=== PATIENT | male | born 1945 | race Caucasian/White ===

== ENCOUNTER 2020-02-23 06:04 | Day surgery (SDC) | payer MEDICARE ==
[2020-02-19 14:38] VITALS: BMI 28.8
--- NOTE | 2020-02-22 22:45 | P.GSHP ---
History of Present Illness H&P Date: 02/23/20 CHIEF COMPLAINT: Back mass HISTORY OF PRESENT ILLNESS: The patient is a 74 year-old male with history of lipomas of the upper back. He presents today for surgical excision. PAST MEDICAL HISTORY: Please see list. PAST SURGICAL HISTORY: Please see list. MEDICATIONS: Please see list. ALLERGIES: Please see list. SOCIAL HISTORY: No illicit drug use FAMILY HISTORY: No reports of Crohn disease or ulcerative colitis. REVIEW OF ORGAN SYSTEMS: CONSTITUTIONAL: No reports of fevers or chills. GI: Denies any blood in stools or constipation. PHYSICAL EXAM: VITAL SIGNS: Stable Musculoskeletal: Approximately 5 cm lipomas, superficial, along the right upper back. SKIN: Lesion identified along bilateral thighs. GENERAL: Well developed and in no acute distress. Pleasant. HEENT: No sclera icterus. Extraocular movements grossly intact. Moist buccal mucosa. Head is atraumatic, normocephalic. Hears conversational speech. No nasal drainage. NECK: Supple without lymphadenopathy. No JV distention. CHEST: Non-labored respirations and equal bilateral excursions. CARDIOVASCULAR: Regular rate and rhythm. Palpable 2+ radial pulses. ABDOMEN: Soft. Non-tender. Nondistended. NEUROLOGIC: No focal or lateralizing signs. PSYCH: Appropriate affect. Alert and oriented to person, place and time. ASSESSMENT: 1. Lipomas along the upper back. PLAN: 1. Will proceed of excision of subcutaneous tumor along the upper back. 2. DVT prophylaxis. 3. Antibiotic prophylaxis. 4. Time of recovery, at least one week. Past Medical History Past Medical History: Cancer, Hyperlipidemia, Hypertension Additional Past Medical History / Comment(s): SKIN CANCER ON NOSE History of Any Multi-Drug Resistant Organisms: None Reported Past Surgical History: Coronary Bypass/CABG, Hernia Repair, Orthopedic Surgery Additional Past Surgical History / Comment(s): BILAT CATARACTS REMOVED WITH LENS IMPLANTS. RT KNEE AND HAND SX. CANCER REMOVED FROM NOSE. SX FOR UNDESCENDED TESTICLE Past Anesthesia/Blood Transfusion Reactions: No Reported Reaction Smoking Status: Never smoker - Past Family History Mother Family Medical History: Cancer Medications and Allergies Home Medications Medication Instructions Recorded Confirmed Type Aspirin [Adult Low Dose Aspirin EC] 81 mg PO DAILY 02/19/20 02/19/20 History Lisinopril [Prinivil] 10 mg PO DAILY 02/19/20 02/19/20 History Metoprolol Tartrate [Lopressor] 25 mg PO BID 02/19/20 02/19/20 History Simvastatin [Zocor] 40 mg PO HS 02/19/20 02/19/20 History Allergies Allergy/AdvReac Type Severity Reaction Status Date / Time No Known Allergies Allergy Verified 02/19/20 14:32
[~2020-02-23 06:04] MED LIST: Pre Op ABX Message 1 EACH MISC MISCELLANE ONE
[2020-02-23] MEDS ORDERED: HYDROmorphone 0.5 MG/0.5 ML SYRINGE IVP PRN (06:13)
[2020-02-23] MEDS ORDERED: LACTATED RINGERS 1,000 ML IV SCH (06:13)
[2020-02-23] MEDS ORDERED: LIDOCAINE 1% (10MG/ML) FOR IV START INTRADERMA PRN (06:13)
[2020-02-23] MEDS ORDERED: ONDANSETRON 4 MG/2 ML VIAL IVP ONE (06:13)
[2020-02-23] MEDS ORDERED: LACTATED RINGERS 1,000 ML IV ONE (06:58)
[2020-02-23] MEDS ORDERED: fentaNYL (PF) 50 MCG/ML 2 ML AMP ONE (07:27)
[2020-02-23] MEDS ORDERED: PROPOFOL 10 MG/ML 20 ML VIAL IV ONE (07:27)
[2020-02-23] MEDS ORDERED: SUCCINYLCHOLINE CHLORIDE 100 MG/5 ML SYR IV ONE (07:27)
[2020-02-23] MEDS ORDERED: LIDOCAINE 1% INJ 10MG/ML (20 ML MDV) ONE (07:27)
[2020-02-23] MEDS ORDERED: MIDAZOLAM 2 MG/2 ML VIAL ONE (07:27)
[2020-02-23] MEDS ORDERED: PHENYLEPHRINE-0.9% NACL SYG 1 MG/10 ML SYRINGE ONE (07:27)
[2020-02-23] MEDS ORDERED: LIDOCAINE 1%-EPI 1:100,000 20 ML VIAL SQ ONE (08:00)
[2020-02-23 08:35] VITALS: RESP 16; TEMP 96.8
--- NOTE | 2020-02-23 08:37 | P.OP ---
Date of Procedure: 02/23/20 Description of Procedure: SURGEON: YESICA PONCE MD CHRISTMAS TREE GROWER: None. PREOPERATIVE DIAGNOSES: 1. Lower midline back tumor 2. Hypertensive heart disease 3. Hyperlipidemia POSTOPERATIVE DIAGNOSES: 1. Deep subcutaneous lower midline back tumor 2. Hypertensive heart disease 3. Hyperlipidemia PROCEDURES PERFORMED: 1. Excision of deep subcutaneous lower midline back mass, 6 x 2.5 cm 2. Complex four layer closure lower midline back incision, 7-cm Anesthesia: GETA, local Estimated Blood Loss (ml): 10 Pathology: other (back mass) Condition: stable Disposition: same day COMPLICATIONS: None. Operative Findings: 1. Excision of deep subcutaneous lower midline back tumor 6 x 2.5 cm INDICATIONS: The patient is a 74-year-old male who presents with symptomatic lower midline back tumor. Benefits and risks of surgical intervention were described including bleeding, infection, seroma, pain and recurrence. Informed consent was obtained. DESCRIPTION OR PROCEDURE: In the preoperative area, the area of concern was marked with indelible marker. Patient was brought into the operating room. After general induction, he was positioned in left lateral decubitus position. The back was prepped and draped in a standard sterile fashion with ChloraPrep. Timeout protocol was confirmed with the surgical team regarding the patient's name, procedure to be performed including preoperative medications. DVT prophylaxis was confirmed. A field block was placed of the left lower back. An transverse incision using #10 blade was made along the marking into the dermis and subcutaneous tissue. Electro-Bovie cautery was used to enter deep into subcutaneous tissue where a mass was removed in total of 6 x 2.5 cm. 0 Vicryl for the deep subcutaneous tissue followed by 3-0 Vicryl for the subcutaneous tissue was placed in interrupted fashion. 4-0 Monocryl in a running subcuticular fashion was placed along the dermis. The skin was cleansed and Exofin tape with liquid was applied for a four layer closure. The incision was covered with Optifoam dressing. At the end of the procedure, needle, sponge, and instrument count was verified correct by surgical assistant. The patient tolerated the procedure well. Plan - Discharge Summary Discharge Rx Participant: No New Discharge Prescriptions: New Ibuprofen [Motrin] 600 mg PO Q8HR PRN #30 tab PRN Reason: Pain Acetaminophen Tab [Tylenol Tab] 1,000 mg PO Q6HR PRN #30 tablet Continue Simvastatin [Zocor] 40 mg PO HS Metoprolol Tartrate [Lopressor] 25 mg PO BID Lisinopril [Prinivil] 10 mg PO DAILY Aspirin [Adult Low Dose Aspirin EC] 81 mg PO DAILY Discharge Medication List Aspirin [Adult Low Dose Aspirin EC] 81 mg PO DAILY 02/19/20 [History] Lisinopril [Prinivil] 10 mg PO DAILY 02/19/20 [History] Metoprolol Tartrate [Lopressor] 25 mg PO BID 02/19/20 [History] Simvastatin [Zocor] 40 mg PO HS 02/19/20 [History] Acetaminophen Tab [Tylenol Tab] 1,000 mg PO Q6HR PRN #30 tablet 02/23/20 [Rx] Ibuprofen [Motrin] 600 mg PO Q8HR PRN #30 tab 02/23/20 [Rx] Follow up Appointment(s)/Referral(s): Yesica Ponce MD [STAFF PHYSICIAN] - 03/02/20 Patient Instructions/Handouts: Dermal Cyst Excision (DC), Excision of Skin Lesion (DC) Activity/Diet/Wound Care/Special Instructions: NO WIDE MOTIONS OF THE SHOULDERS/ARMS FOR 1 WEEK. NO BENDING AT THE HIPS WHILE SITTING NO EXTREME STRETCHING OF THE BACK See instructions on dressing. DO NOT REMOVE DRESSING. No lifting over 10 pounds in 2 weeks, Mar 08August shower. No bath tub soaks for two weeks, Mar 08 Diet as tolerated. Notify surgeon for temperature over 101.5, increased redness along incision, increased pain along surgical site. Discharge Disposition: HOME SELF-CARE
[2020-02-23 09:29] VITALS: BP 113/72; PULSE 71
== END 2020-02-23 09:39 | disposition home or self-care (01) ==
LOC: OR 06:04
PROVIDERS: ATTEND Surgery Plastic and Reconstructive Surgery
DX: L72.0 Epidermal cyst (principal); I11.9 Hypertensive heart disease without heart failure; E78.5 Hyperlipidemia, unspecified; Z79.82 Long term (current) use of aspirin; Z98.890 Other specified postprocedural states; Z95.1 Presence of aortocoronary bypass graft; Z80.9 Family history of malignant neoplasm, unspecified; Z79.899 Other long term (current) drug therapy
CPT/HCPCS: 88304; 11406; 12032; J2250; J0690; J2405; J2001; J3010; J2370; J0330; J2704

== ENCOUNTER → 2021-03-01 | Outpatient (CLI) | payer MEDICARE | END | disposition home or self-care (01) | LOC: LABPAT 10:30 | PROVIDERS: ATTEND Orthopaedic Surgery | DX: Z01.812 Encounter for preprocedural laboratory examination (principal); M16.12 Unilateral primary osteoarthritis, left hip; Z22.322 Carrier or suspected carrier of Methicillin resistant Staphylococcus aureus | CPT/HCPCS: 86850; 86900; 86901; 87070 ==

== ENCOUNTER 2021-03-07 06:11 | Day surgery (SDC) | payer MEDICARE ==
--- NOTE | 2021-03-06 17:51 | HP ---
HISTORY AND PHYSICAL DATE OF SURGERY: 03/07/2021 Ben Harper is a 75-year-old patient seen with symptomatic left hip osteoarthritis. We discussed options for treatment. The patient elected to proceed with direct anterior left total hip arthroplasty. Consent regarding the procedure was obtained. Cardiac clearance was provided by Dr. Cuevas. PAST MEDICAL HISTORY: Cardiovascular disease, hyperlipidemia, hypertension. PAST SURGICAL HISTORY: Coronary artery bypass surgery, herniorrhaphy, cataract surgery. DAILY MEDICATIONS: Aspirin, lisinopril, metoprolol, simvastatin. ALLERGIES: NONE REPORTED. SOCIAL HISTORY: He denies tobacco use. PHYSICAL EVALUATION OF THE LEFT HIP: He has very limited range of motion with severe pain, diffuse tenderness. Positive hip impingement sign. Straight-leg raise negative. Distal neurovascular exam is intact. Radiographs of the left hip reveal severe osteoarthritic changes. IMPRESSION: 1. Left hip osteoarthritis. 2. Hypertension. 3. Hyperlipidemia. 4. Cardiovascular disease. PLAN: Direct anterior left total hip arthroplasty. MMODL / IJN: [id number] /
[~2021-03-07 06:11] MED LIST changes: +ACETAMINOPHEN TAB 500 MG TAB PO PRN; +MELOXICAM 7.5 MG TAB PO PRN; -Pre Op ABX Message 1 EACH MISC MISCELLANE ONE; +ROPIVACAINE/EPI/CLONIDINE/KET 50 ML SYRINGE MISCELLANE PRN; +TRANEXAMIC ACID 1,000 MG in SODIUM CHLORIDE 0.9% 100 ML IVPB PRN
[2021-03-07] MEDS ORDERED: MIDAZOLAM 2 MG/2 ML VIAL IV PRN (06:27)
[2021-03-07] MEDS ORDERED: ONDANSETRON 4 MG/2 ML VIAL IVP ONE (06:27)
[2021-03-07] MEDS ORDERED: DEXAMETHASONE SOD PHOSPHATE 4 MG/ML 1 ML VIAL IV ONE (06:27)
[2021-03-07] MEDS ORDERED: LIDOCAINE 1% (10MG/ML) FOR IV START INTRADERMA ONE (06:55)
[2021-03-07] MEDS: LACTATED RINGERS 1,000 ML IV SCH ×2 (06:55→19:29)
[2021-03-07] MEDS ORDERED: HYDROmorphone 0.5 MG/0.5 ML SYRINGE IVP PRN ×3 (07:00→09:22)
[2021-03-07] MEDS ORDERED: TRANEXAMIC ACID 1,000 MG/10 ML VIAL ONE (07:22)
[2021-03-07] MEDS ORDERED: fentaNYL (PF) 50 MCG/ML 2 ML AMP ONE (07:22)
[2021-03-07] MEDS ORDERED: MIDAZOLAM 2 MG/2 ML VIAL ONE (07:22)
[2021-03-07] MEDS ORDERED: KETAMINE 10 MG/ML 20 ML VIAL ONE (07:22)
[2021-03-07] MEDS ORDERED: diphenhydrAMINE 50 MG/ML 1 ML VIAL ONE (07:22)
[2021-03-07] MEDS ORDERED: PROPOFOL 10 MG/ML 20 ML VIAL IV ONE (07:22)
[2021-03-07] MEDS ORDERED: SODIUM CHLORIDE 0.9% 100 ML BAG ONE (07:22)
[2021-03-07] MEDS ORDERED: ceFAZolin 1,000 MG in SODIUM CHLORIDE 0.9% 1,000 ML IRRIGATION ONE (08:02)
[2021-03-07] MEDS ORDERED: LACTATED RINGERS 1,000 ML IV ONE (08:23)
--- NOTE | 2021-03-07 09:19 | XR ---
EXAMINATION TYPE: XR Hip Limited LT DATE OF EXAM: 03/07/2021 COMPARISON: NONE HISTORY: Postop TECHNIQUE: One view submitted. FINDINGS: There is postsurgical change in near anatomic alignment. There is soft tissue edema and emphysema. IMPRESSION: 1. Postoperative change. Appears in near-anatomic alignment.
[2021-03-07] MEDS ORDERED: NALOXONE 0.4 MG/ML 1 ML VIAL IV PRN (09:22)
[2021-03-07] MEDS ORDERED: HYDROcodone/APAP 5-325MG 1 EACH TAB PO PRN ×2 (09:22)
[2021-03-07] MEDS ORDERED: ONDANSETRON 4 MG/2 ML VIAL IVP PRN (09:22)
[2021-03-07] MEDS ORDERED: HYDROmorphone 0.2 MG/1 ML SYRINGE IVP PRN (09:22)
--- NOTE | 2021-03-07 09:22 | FL ---
EXAMINATION TYPE: FL guidance operating room DATE OF EXAM: 03/07/2021 HISTORY: Fluoroscopy time 10 seconds of fluoroscopy provided. IMPRESSION: 1. Fluoroscopy time.
--- NOTE | 2021-03-07 09:22 | P.OP ---
Date of Procedure: 03/07/21 Preoperative Diagnosis: Left hip osteoarthritis Postoperative Diagnosis: Left hip osteoarthritis Procedure(s) Performed: Direct anterior left total hip arthroplasty Implants: 1. Depuy Corail KA size 18 standard collar press-fit femoral stem 2. Depuy pinnacle 64 mm press-fit acetabular shell 3. Depuy pinnacle +4 neutral polyethylene acetabular liner 36 mm ID 64 mm OD 4. Biolox delta ceramic femoral head +5 36 mm Anesthesia: local, spinal Surgeon: Denzel Villasenor Sharebroker #1: Sujit Christianson Estimated Blood Loss (ml): 105 Pathology: other (Femoral head) Condition: stable Disposition: PACU Indications for Procedure: 75-year-old patient seen with symptomatic left hip osteoarthritis. After treatment options were discussed, he elected to proceed with total hip arthroplasty. Operative Findings: see description of procedure Description of Procedure: The patient was taken to the operative suite. Patient underwent a spinal anesthetic by the department of anesthesia. Patient was then transferred to the [place] table. Patient was given preoperative IV antibiotics and TXA. Both lower extremities were placed in standard leg spars. The hip was then prepped and draped in the normal sterile orthopedic fashion. A standard anterior incision was made beginning 3 cm lateral and 1 cm distal to the ASIS extending 10 cm. Dissection was then carried down through the subcutaneous soft tissues down to the fascia overlying the tensor fascia dc. An incision was now made through the fascia. Careful dissection was taken down exposing the tensor fascia dc muscle. A Cobra retractor was now placed along the medial femoral neck and a second one along the lateral femoral neck. The venous circumflex vessels were now identified, cauterized and clipped. We identified the anterior hip capsule. An incision was made through the hip capsule along the lateral border. I performed a partial anterior capsulectomy. Retractors were now placed around the femoral neck itself. A femoral neck cut was now made with a sagittal saw. It was completed with an osteotome at the lateral neck area. The femoral head was now removed without difficulty. The extremity was now rotated to 60 of external rotation. It was locked in position. Residual labrum was now debrided out. Serial reaming was performed of the acetabulum while Jamie PLEITEZ assisted holding an anterior retractor for exposure. Once we reached the appropriate size and a trial was position and fit nicely. The appropriate size was now chosen opened and made available. It was introduced into the acetabulum without difficulty. The C-arm/fluoroscopy was now brought into the operative field. We made sure we had a true AP pelvic view. We now under direct C- arm/fluoroscopy introduced into the acetabular component with appropriate version and inclination. I held the cup in appropriate position well Jamie PLEITEZ used a mallet to seat the acetabular component. I noted the component now to be well seated and stable. Acetabular cup introduce her was removed. The C-arm was pulled back. An appropriate liner was introduced and clicked into position. It was felt to be stable. At this point retractors were removed. The extremity was now placed into 140 external rotation with no traction. The leg was now dropped to the ground and adducted. Appropriate retractors were now positioned along the proximal femur. We also placed our femoral look into position. Additional capsular releasing was performed to gain access to the proximal femur. We now used a box osteotome. A canal finder was now utilized. Serial broaching was now performed with the assistance of Jamie PLEITEZ tapping the broaches down with a mallet while held the broach in appropriate rotation and position. This was done until we reached the appropriate size with good overall rotational stability. Appropriate calcar planing was performed. A trial head/neck was placed into position. The hip was now reduced. The C- arm/fluoroscopy was brought back into the operative field. I obtained an AP pelvis demonstrating reasonable leg length alignment. The trial components appear to be adequately size and position. The C-arm/fluoroscopy was pulled back. Retractors were repositioned and the hip was dislocated. The leg was again taken down to the ground and adducted. Appropriate retractors were repositioned as well as the femoral hook. All trial components were removed. The femoral implant was opened along with the femoral head. The femoral implant was introduced on the appropriate handle into our pre-broached area. I held the component position well Jamie PLEITEZ used a mallet to seat the femoral component. The femoral component was now noted to be well seated and stable.. The femoral head was introduced with good positioning and fixation noted. Retractors were now removed. The hip was now reduced. There appeared be good positioning of the hip confirmed on intraoperative fluoroscopy. Spot films were obtained to document this. A second gram of TXA was given. The deep and superficial soft tissues were infiltrated with local analgesic. Bipolar cautery had been utilized intermittently through the procedure for hemostasis. The wound was irrigated copiously with pulse lavage mechanical irrigation. The fascia was repaired with Vicryl suture. The subcutaneous soft tissues were repaired in layers with Vicryl suture. The skin was approximated with pernio/Dermabond. Sterile dressings were applied. Patient was then awakened, transferred to a bed and taken to recovery in stable condition. Jamie PLEITEZ assisted with the complex procedure.
[2021-03-07] MEDS: lisinopriL 10 MG TAB PO SCH (16:28)
[2021-03-07] MEDS ORDERED: ACETAMINOPHEN TAB 325 MG TAB PO PRN (19:57)
[2021-03-07] MEDS: METOPROLOL TARTRATE 25 MG TAB PO SCH (20:29)
[2021-03-07] MEDS ORDERED: ATORVASTATIN 20 MG TAB PO SCH (21:00)
[2021-03-07] MEDS ORDERED: SENNOSIDES-DOCUSATE SODIUM 1 EACH TAB PO SCH (21:00)
[2021-03-08] MEDS: LACTATED RINGERS 1,000 ML IV SCH ×3 (01:16→08:40)
[2021-03-08 03:26] VITALS: RESP 16
--- NOTE | 2021-03-08 08:09 | P.CONS ---
History of Present Illness - Reason for Consult Consult date: 03/07/21 Medical management, left total hip arthroplasty. Requesting physician: Denzel Villasenor - Chief Complaint Left total hip arthroplasty. - History of Present Illness HISTORY OF PRESENT ILLNESS 75-year-old male one of Dr. Cuevas patient with past medical history of coronary artery disease post CABG in 2006, history of hypertension hyperlipidemia and history of skin cancer who is very active exercising regular basis used to bike on regular basis. Patient developed for the last 4-5 years significant pain and discomfort and lack of mobility of the left hip area had limited his activity and exercise significantly. Patient had seen orthopedic x- ray of the hip showed severe degenerative arthritis of the left hip. Patient had try conservative management with PTOT medication and topical product with no help. Patient was scheduled for elective left total hip arthroplasty which was done by Dr. Villasenor successfully was admitted to the floor afterward is hemodynamically stable doing well pain is under control surprisingly patient was able to stand up and walk to the bathroom on walker almost on his own. REVIEW OF SYSTEMS Constitutional: No fever, no chills, no night sweats. No weight change. No weakness, fatigue or lethargy. No daytime sleepiness. EENT: No headache. No blurred vision or double vision, no loss of vision. No loss of Hearing, no ringing in the ears, no dizziness. No nasal drainage or congestion. No epistaxis. No sore throat. Lungs: No shortness of breath, cough, no sputum production. No wheezing. Cardiovascular: No chest pain, no lower extremity edema. No palpitations. No paroxysmal nocturnal dyspnea. No orthopnea. No lightheadedness or dizziness. No syncopal episodes. Abdominal: No abdominal pain. No nausea, vomiting. No diarrhea. No constipation. No bloody or tarry stools.. No loss of appetite. Genitourinary: No dysuria, increased frequency, urgency. No urinary retention. Musculoskeletal: Mild incision pain of the left hip area. No myalgias. No muscle weakness, no gait dysfunction, no frequent falls. No back pain. No neck pain. Integumentary: No wounds, no lesions. No rash or pruritus. No unusual bruising. No change in hair or nails. Neurologic: No aphasia. No facial droop. No change in mentation. No head injury. No headache. No paralysis. No paresthesia. Psychiatric: No depression. No anxiety. No mood swings. Endocrine: No abnormal blood sugars. No weight change. No excessive sweating or thirst. No cold intolerance. SOCIAL HISTORY He does not smoke [place] and abuse known drug use he does not use any CPAP, BiPAP or oxygen at home, he is retired care for his at home. FAMILY HISTORY He has 2 children both are living and well, patient had 2 brothers with history of CAD and diverticulitis. His father age 92 from old age and mother at 67 from cancer ? Breast. PHYSICAL EXAMINATION Gen: This is a well-developed looks really good for his age does not look in any respiratory distress. HEENT: Head is atraumatic, normocephalic. Pupils equal, round. Sclerae is anicteric. NECK: Supple. No JVD. No lymphadenopathy. No thyromegaly. LUNGS: Clear to auscultation. No wheezes or rhonchi. No intercostal retractions. HEART: Regular rate and rhythm. No murmur. ABDOMEN: Soft. Bowel sounds are present. No masses. No tenderness. EXTREMITIES: No pedal edema. No calf tenderness. His left hip incision looks anterior approach with no induration or redness or abnormality. NEUROLOGICAL: Patient is awake, alert and oriented x3. Cranial nerves 2 through 12 are grossly intact. ASSESSMENT AND PLAN 1. Post left total hip arthroplasty: Stable doing very well resume activity and physical therapy as soon as possible continue to watch patient's pain and hemodynamic status at this point. 2 CAD: Post CABG back in 2006 has been doing very well on secondary prevention has not had any further events still on beta win, jah and statin along with aspirin resume all medication. 3 hypertension: Continue lisinopril 10 mg a day along with metoprolol tatrate 25 mg twice a day. 4 hyperlipidemia: Remain on simvastatin 40 mg a day. 5 BPH: Watch for any urinary retention no Alberto catheter was in. 6 pain management: Patient had require minimal mammography hydrocodone orally he wants to stay on Tylenol as needed when he goes home. 7 DVT prophylaxis: Patient was started on Lovenox while he is not hospital and when he leaves he will be on aspirin per orthopedic protocol. 8 GI prophylaxis: Pepcid 20 mg a day can be added. CODE STATUS: Full code. Dr. Villasenor thank you much for the consult if I can be further help to please let me know. Past Medical History Past Medical History: Coronary Artery Disease (CAD), Cancer, Hyperlipidemia, Hypertension, Osteoarthritis (OA) Additional Past Medical History / Comment(s): SKIN CANCER ON NOSE History of Any Multi-Drug Resistant Organisms: None Reported Past Surgical History: Coronary Bypass/CABG, Hernia Repair, Orthopedic Surgery Additional Past Surgical History / Comment(s): BILAT CATARACTS REMOVED WITH LENS IMPLANTS. RT KNEE AND HAND SX. CANCER REMOVED FROM NOSE. SX FOR UNDESCENDED TESTICLE Past Anesthesia/Blood Transfusion Reactions: No Reported Reaction Past Psychological History: No Psychological Hx Reported Smoking Status: Never smoker Past Alcohol Use History: None Reported Past Drug Use History: None Reported - Past Family History Mother Family Medical History: Cancer Medications and Allergies Home Medications Medication Instructions Recorded Confirmed Type Aspirin [Adult Low Dose Aspirin EC] 81 mg PO DAILY 02/19/20 03/02/21 History Lisinopril [Prinivil] 10 mg PO QAM 02/19/20 03/02/21 History Metoprolol Tartrate [Lopressor] 25 mg PO BID 02/19/20 03/02/21 History Simvastatin [Zocor] 40 mg PO HS 02/19/20 03/02/21 History Acetaminophen Tab [Tylenol Tab] 1,000 mg PO Q6HR PRN #30 tablet 02/23/20 03/02/21 Rx Ibuprofen [Motrin] 600 mg PO Q8HR PRN #30 tab 02/23/20 03/02/21 Rx Allergies Allergy/AdvReac Type Severity Reaction Status Date / Time No Known Allergies Allergy Verified 03/07/21 06:41 Physical Exam Vitals: Vital Signs Temp Pulse Pulse Resp BP Pulse Ox 03/07/21 12:09 97.4 F L 61 16 131/71 98 03/07/21 11:32 55 L 18 113/68 99 03/07/21 11:01 54 L 16 108/67 98 03/07/21 10:31 59 L 18 103/68 98 03/07/21 10:16 57 L 18 113/69 97 03/07/21 10:01 62 16 106/64 100 03/07/21 09:46 62 16 100/63 100 03/07/21 09:25 97.3 F L 72 14 91/50 97 03/07/21 07:00 97.8 F 66 16 146/90 97 Intake and Output 03/07/21 03/07/21 03/07/21 06:59 14:59 22:59 Intake Total 200 1351 Output Total 105 Balance 200 1246 Intake: IV 200 1351 Output: Estimated Blood Loss 105 Other: # Voids 1 Weight 97.7 kg
[2021-03-08] MEDS: lisinopriL 10 MG TAB PO SCH (08:39)
[2021-03-08] MEDS: METOPROLOL TARTRATE 25 MG TAB PO SCH (08:39)
[2021-03-08] MEDS ORDERED: MELOXICAM 7.5 MG TAB PO SCH (09:00)
[2021-03-08] MEDS ORDERED: ENOXAPARIN 40 MG/0.4 ML SYRINGE SQ SCH (09:00)
[2021-03-08] MEDS ORDERED: FAMOTIDINE 20 MG TAB PO SCH (09:00)
[2021-03-08 09:09] LABS: Basophils # (A) 0.02 X 10*3/uL (0.00-0.10); Basophils % (A) 0.3 %; Eosinophils # (A) 0.02 X 10*3/uL (0.04-0.35); Eosinophils % (A) 0.3 %; HCT 37.5 % (39.6-50.0); HGB 12.6 g/dL (13.0-17.0); Lymphocytes # (A) 1.55 X 10*3/uL (0.90-5.00); Lymphocytes % (A) 19.5 %; MCH 31.7 pg (27.0-32.0); MCHC 33.6 g/dL (32.0-37.0); MCV 94.2 fL (80.0-97.0); Mean Platelet Volume 9.6 fL (9.5-12.2); Monocytes # (A) 1.01 X 10*3/uL (0.20-1.00); Monocytes % (A) 12.7 %; Neutrophils % (A) 66.8 %; Platelet Count 152 X 10*3/uL (140-440); RBC 3.98 X 10*6/uL (4.40-5.60); RDW 12.7 % (11.5-14.5); WBC 7.93 X 10*3/uL (4.50-10.00)
[2021-03-08 09:14] VITALS: BP 149/69; PULSE 78; TEMP 98.7
--- NOTE | 2021-03-08 10:52 | P.DS ---
Providers Date of admission: 03/07/2021 Expected date of discharge: 03/08/21 Attending physician: Denzel Villasenor Consults: 03/07/21 09:22 Consult Physician Routine Consulting Provider: Yosi Mazariegos Reason/Comments: Medical management Do you want consulting provider notified?: Yes Primary care physician: Bob Cuevas MD Hospital Course: Date of admission: 03/07/2021 Date of discharge: 03/08/2021 Admission diagnosis: Left hip osteoarthritis Discharge diagnosis: Same Attending physician: Dr. Villasenor Surgical procedures: Left total hip arthroplasty Brief history: Patient is a 75-year-old male with a history of progressive primary left hip osteoarthritis. At this point patient has failed conservative treatment measures and has opted to proceed with a elective left total hip arthroplasty. Hospital course: Details of patient's surgery can be found in operative report. Patient tolerated the procedure well and was subsequently transported to orthopedic floor. Patient's orthopeidc and medical care was provided daily. Patient had daily laboratory tests performed for evaluation of overall blood counts . Patient had daily physical therapy to include strengthening range of motion as well as education with walker ambulation. Patient was treated with Lovenox for their postoperative DVT prophylaxis during their inpatient stay. Patient was noted to have a relatively uneventful postoperative course. Patient reported satisfactory pain control with oral pain medications by postoperative day 1. Patient showed satisfactory progress with physical therapy. Patient moved steadily through the program and had no difficulty meeting the goals by postoperative day 1. Given patient's otherwise satisfactory course and having met physical therapy goals, plan is to discharge patient home on postoperative day 1. Discharge condition/disposition: Patient will be discharged home in stable condition. Discharge medications: Instructions are given on resumption of patient's normal daily medications per primary care recommendation, in addition patient will be prescribed [place] 5 mg/325 mg; patient will continue aspirin 81 mg twice a day 30 days at home. Patient has stool softener home. Discharge instructions: 1. Wound care and infection precautions, keep incision dry and covered while showering, no lotions, creams, moisturizers. No soaking, tubs, pools, hottubs. Do not scrub over the incision. 2. Weight-bear as tolerated with walker / cane until follow-up. 3. Ice and elevate when necessary. Do not exceed 20 minutes per hour with ice pack. 4. Utilize compression sleeve until seen at first follow up appointment. 5. Visiting nursing care. 6. Home physical therapy. 7. Pain meds and anticoagulants per prescription. 8. Pain medication has potential to cause constipation. Increase oral fluid and fiber intake. Contact primary care provider if you have not had a bowel movement within 48 hours after discharge 9. No anti-inflammatory medication until discussed at first post operative visit, this including Motrin, Aleve, Mobic, Diclofenac. 10. Follow up in office at 2 weeks postop with Jamei Christianson PA-C / Jossue Pro PA-C 11. Follow up with your primary care doctor 7-10 days after discharge. 12. Contact [facility] with any questions, . While showering, cover silver foam dressing with Saran wrap. Silver foam dressing may be removed in 7 days. Assessment: Left hip osteoarthritis Procedures: Left total hip arthroplasty Patient Condition at Discharge: Good Plan - Discharge Summary Discharge Rx Participant: No New Discharge Prescriptions: New Sennosides-Docusate Sodium [Senokot-S] 2 each PO HS tab HYDROcodone/APAP 5-325MG [[place] 5-325] 1 tab PO Q6HR PRN #28 tab PRN Reason: Pain Continue Simvastatin [Zocor] 40 mg PO HS Metoprolol Tartrate [Lopressor] 25 mg PO BID Lisinopril [Prinivil] 10 mg PO QAM Aspirin [Adult Low Dose Aspirin EC] 81 mg PO DAILY Ibuprofen [Motrin] 600 mg PO Q8HR PRN #30 tab PRN Reason: Pain Acetaminophen Tab [Tylenol] 1,000 mg PO Q6HR PRN #30 tablet Discharge Medication List Aspirin [Adult Low Dose Aspirin EC] 81 mg PO DAILY 02/19/20 [History] Lisinopril [Prinivil] 10 mg PO QAM 02/19/20 [History] Metoprolol Tartrate [Lopressor] 25 mg PO BID 02/19/20 [History] Simvastatin [Zocor] 40 mg PO HS 02/19/20 [History] Acetaminophen Tab [Tylenol] 1,000 mg PO Q6HR PRN #30 tablet 02/23/20 [Rx] Ibuprofen [Motrin] 600 mg PO Q8HR PRN #30 tab 02/23/20 [Rx] HYDROcodone/APAP 5-325MG [[place] 5-325] 1 tab PO Q6HR PRN #28 tab 03/08/21 [Rx] Sennosides-Docusate Sodium [Senokot-S] 2 each PO HS tab 03/08/21 [Rx] Follow up Appointment(s)/Referral(s): Bob Cuevas MD [Primary Care Provider] - 2 Weeks [facility], [NON-STAFF] - ([facility] will call you to schedule your home physical therapy and nursing visits. ) Sujit Christianson PAC [PHYSICIAN TEACHER ASSOCIATE] - 03/25/21 8:20 am Patient Instructions/Handouts: How to Choose and Use a Walker (GEN), Anterior Hip Replacement (DC) Activity/Diet/Wound Care/Special Instructions: Orthopedic Discharge Instructions: 1. Wound care and infection precautions, keep incision dry and covered while showering, no lotions, creams, moisturizers. No soaking, pools, hot tubs. Do not scrub over incision. 2. Weight-bear as tolerated with walker / cane until follow-up. 3. Ice and elevate when necessary. Do not exceed 20 minutes per hour with ice pack. 4. Utilize compression sleeve until seen at first follow up appointment. 5. Pain meds and anticoagulants per prescription. 6. Pain medication has potential to cause constipation. Increase oral fluid and fiber intake. Contact primary care provider if you have not had a bowel movement within 48 hours after discharge. 7. No anti-inflammatory medication until discussed at first post operative visit, this including Motrin, Aleve, Mobic, Diclofenac. 8. Follow up in office at 2 weeks postop with Jamie Christianson PA-C/Jossue Pro PA-C 9. Follow up with your primary care doctor 7-10 days after discharge. 10. Contact [facility] with any questions, . Wound care instructions: 1. Okay to remove foam dressing on 03/14/2000 2. Keep the incision covered and dry while showering at all times Discharge Disposition: HOME WITH HOME HEALTH SERVICES
--- NOTE | 2021-03-08 12:37 | P.PN ---
Subjective Progress Note Date: 03/08/21 Principal diagnosis: Left hip osteoarthritis Patient seen at bedside this morning resting comfortably in chair. Patient says he is not taking any oral pain medications since surgery yesterday. Patient says he would like to go home today. Patient says he does have a walker at home that he can use. Patient says he has not had bowel movement yet. However, patient says he has been passing gas. Patient denies chest pain, fever, shortness breath, nausea, vomiting, change in vision, loss pulse/bladder control. Objective - Vital Signs Vital signs: Vital Signs Temp 98.7 F 03/08/21 09:00 Pulse 78 03/08/21 09:00 Resp 16 03/08/21 09:00 BP 149/69 03/08/21 09:00 Pulse Ox 98 03/08/21 09:00 Intake & Output 03/07/21 03/08/21 03/08/21 18:59 06:59 18:59 Intake Total 1351 470 200 Output Total 105 Balance 1246 470 200 Weight 97.7 kg Intake: IV 1351 Intake, IV Titration 470 Amount Lactated Ringers 1,000 ml 420 @ 70 mls/hr IV .[id number] RICK Rx#:[id number] ceFAZolin 2 gm In Sodium 50 Chloride 0.9% 50 ml @ 100 mls/hr IVPB Q8HR RICK Rx# :[id number] Oral 200 Output: Estimated Blood Loss 105 Other: # Voids 1 1 1 - Exam Left hip: Incision is clean, dry, and intact. The silver foam dressing is in good condition. There is minimal soft tissue swelling and ecchymosis surrounding the medial and lateral aspects of the incision. Calf is soft, no tenderness with palpation. Plantar flexion, dorsiflexion, EHL, FHL are intact. Sensory exam to light touch throughout the extremity is intact, dorsal pedis pulses 2+. - Labs CBC & Chem 7: 03/08/21 05:49 Labs: Abnormal Lab Results - Last 24 Hours (Table) 03/08/21 Range/Units 05:49 RBC 3.98 L (4.40-5.60) X 10*6/uL Hgb 12.6 L (13.0-17.0) g/dL Hct 37.5 L (39.6-50.0) % Monocytes # 1.01 H (0.20-1.00) X 10*3/uL Eosinophils # 0.02 L (0.04-0.35) X 10*3/uL Assessment and Plan Assessment: Left hip osteoarthritis -Postoperative day 1 status post left total hip arthroplasty Plan: 1. Left hip osteoarthritis - left total hip arthroplasty performed yesterday, 01/05/2021. Patient stable at bedside this morning. Plan discharge home today. 2. Appreciate medical management 3. Pain management - going home with [place] 5 mg/325 mg 4. DVT prophylaxis - aspirin 81 mg twice a day 30 days. Patient has aspirin at home 5. GI ppx - senna. Patient has stool softener at home 6. PT/OT - WBAT w/walker for assistance 7. Encourage incentive spirometer use 8. Disharge planning - discharge home today with health services Time with Patient: Less than 30
--- NOTE | 2021-03-08 13:12 | P.PN ---
Subjective Progress Note Date: 03/08/21 HISTORY OF PRESENT ILLNESS 75-year-old male one of Dr. Cuevas patient with past medical history of coronary artery disease post CABG in 2006, history of hypertension hyperlipidemi a and history of skin cancer who is very active exercising regular basis used to bike on regular basis. Patient developed for the last 4-5 years significant pain and discomfort and lack of mobility of the left hip area had limited his activity and exercise significantly. Patient had seen orthopedic x-ray of the hip showed severe degenerative arthritis of the left hip. Patient had try conservative management with PTOT medication and topical product with no help. Patient was scheduled for elective left total hip arthroplasty which was done by Dr. Villasenor successfully was admitted to the floor afterward is hemodynamically stable doing well pain is under control surprisingly patient was able to stand up and walk to the bathroom on walker almost on his own. 03/08: Patient is postop day #1. Pain is controlled. He states he walked with physical therapy and anticipates discharge home today. Alberto is out and he was able to urinate on his own. He's reaching 3000+ on incentive spirometry. Medication reconciliation will be reviewed. REVIEW OF SYSTEMS Constitutional: No fever, no chills, no night sweats. No weight change. No weakness, fatigue or lethargy. No daytime sleepiness. EENT: No headache. No blurred vision or double vision, no loss of vision. No loss of Hearing, no ringing in the ears, no dizziness. No nasal drainage or congestion. No epistaxis. No sore throat. Lungs: No shortness of breath, cough, no sputum production. No wheezing. Cardiovascular: No chest pain, no lower extremity edema. No palpitations. No paroxysmal nocturnal dyspnea. No orthopnea. No lightheadedness or dizziness. No syncopal episodes. Abdominal: No abdominal pain. No nausea, vomiting. No diarrhea. No constipation. No bloody or tarry stools.. No loss of appetite. Genitourinary: No dysuria, increased frequency, urgency. No urinary retention. Musculoskeletal: Mild incision pain of the left hip area. No myalgias. No muscle weakness, no gait dysfunction, no frequent falls. No back pain. No neck pain. Integumentary: No wounds, no lesions. No rash or pruritus. No unusual bruising. No change in hair or nails. Neurologic: No aphasia. No facial droop. No change in mentation. No head injury. No headache. No paralysis. No paresthesia. Psychiatric: No depression. No anxiety. No mood swings. Endocrine: No abnormal blood sugars. No weight change. No excessive sweating or thirst. No cold intolerance. PHYSICAL EXAMINATION Gen: This is a 75-year-old male, does not look in any respiratory distress. HEENT: Head is atraumatic, normocephalic. Pupils equal, round. Sclerae is anicteric. NECK: Supple. No JVD. No lymphadenopathy. No thyromegaly. LUNGS: Clear to auscultation. No wheezes or rhonchi. No intercostal retractions. HEART: Regular rate and rhythm. No murmur. ABDOMEN: Soft. Bowel sounds are present. No masses. No tenderness. EXTREMITIES: No pedal edema. No calf tenderness. His left hip incision looks anterior approach with no induration or redness or abnormality. NEUROLOGICAL: Patient is awake, alert and oriented x3. Cranial nerves 2 through 12 are grossly intact. ASSESSMENT AND PLAN 1. Post left total hip arthroplasty, postop day #1. Patient has been stable. Continue pain management, therapy, incentive spirometry and DVT prophylaxis per orthopedics. 2 CAD: Post CABG back in 2006 has been doing very well on secondary prevention has not had any further events still on beta win, jah and statin along with aspirin resume all medication. 3 hypertension: Continue lisinopril 10 mg a day along with metoprolol tatrate 25 mg twice a day. 4 hyperlipidemia: Remain on simvastatin 40 mg a day. 5 BPH: Watch for any urinary retention no Alberto catheter was in. 6 pain management: Patient had require minimal mammography hydrocodone orally he wants to stay on Tylenol as needed when he goes home. 7 DVT prophylaxis: Patient was started on Lovenox while he is not hospital and when he leaves he will be on aspirin per orthopedic protocol. 8 GI prophylaxis: Pepcid 20 mg a day can be added. CODE STATUS: Full code. Dr. Villasenor thank you much for the consult if I can be further help to please let me know. DISCHARGE PLAN Home Impression and plan of care have been directed as dictated by the signing physician. Lexy Cadena nurse practitioner acting as scribe for signing physician. Objective - Vital Signs Vital signs: Vital Signs Temp 98.7 F 03/08/21 09:00 Pulse 78 03/08/21 09:00 Resp 16 03/08/21 09:00 BP 149/69 03/08/21 09:00 Pulse Ox 98 03/08/21 09:00 Intake & Output 03/07/21 03/08/21 03/08/21 18:59 06:59 18:59 Intake Total 1351 470 200 Output Total 105 Balance 1246 470 200 Weight 97.7 kg Intake: IV 1351 Intake, IV Titration 470 Amount Lactated Ringers 1,000 ml 420 @ 70 mls/hr IV .[id number] RICK Rx#:[id number] ceFAZolin 2 gm In Sodium 50 Chloride 0.9% 50 ml @ 100 mls/hr IVPB Q8HR RICK Rx# :[id number] Oral 200 Output: Estimated Blood Loss 105 Other: # Voids 1 1 - Labs CBC & Chem 7: 03/08/21 05:49 Labs: Abnormal Lab Results - Last 24 Hours (Table) 03/08/21 Range/Units 05:49 RBC 3.98 L (4.40-5.60) X 10*6/uL Hgb 12.6 L (13.0-17.0) g/dL Hct 37.5 L (39.6-50.0) % Monocytes # 1.01 H (0.20-1.00) X 10*3/uL Eosinophils # 0.02 L (0.04-0.35) X 10*3/uL
== END 2021-03-08 13:13 | disposition home health service (06) ==
LOC: OR 06:11 → 4SSUR 09:08 → OR 03-08 13:13
PROVIDERS: ATTEND Orthopaedic Surgery
DX: M16.12 Unilateral primary osteoarthritis, left hip (principal); I25.10 Atherosclerotic heart disease of native coronary artery without angina pectoris; I08.3 Combined rheumatic disorders of mitral, aortic and tricuspid valves; E78.5 Hyperlipidemia, unspecified; M54.32 Sciatica, left side; I10 Essential (primary) hypertension; Z95.1 Presence of aortocoronary bypass graft; Z98.890 Other specified postprocedural states; Z79.82 Long term (current) use of aspirin; Z79.899 Other long term (current) drug therapy
CPT/HCPCS: 97116; 97161; 86900; 86901; 85025; 86850; 88300; 87070; 87635; 73501; 27130; C1776; J2250; J1200; J1100; J0690 ×2; J2405; J1650; J3010; J2704; J1170

== ENCOUNTER 2021-04-01 14:36 | Emergency (ER) | payer MEDICARE ==
[2021-04-01 15:19] VITALS: BP 114/72; PULSE 51; RESP 20; TEMP 98.7
[2021-04-01] MEDS ORDERED: KETOROLAC 15 MG/ML 1 ML VIAL IM STA (19:09)
--- NOTE | 2021-04-01 19:13 | ED ---
General Adult HPI - General Chief complaint: Extremity Problem,Nontraumatic Stated complaint: rt leg pain Time Seen by Provider: 04/01/21 19:00 Source: patient, RN notes reviewed, old records reviewed Mode of arrival: ambulatory Limitations: no limitations - History of Present Illness Initial comments: This is a 75-year-old male who presents emergency Department having had hip surgery on the left hip about 4 weeks ago. Patient states over the last 3 days he has started to have posterior right thigh pain. Patient states movement definitely makes it worse per patient has not noticed any distal swelling. Patient states palpating the area does hurt a little but not as much moving it. Patient denies any recent injury or trauma. Patient states he is taking care of his at home and has to do some lifting relative to her and he may have pulled something but he does not recall an injury. Patient denies any back pain. Patient denies any numbness or focal weakness. Patient denies any area of erythema or ecchymosis - Related Data Home Medications Medication Instructions Recorded Confirmed Aspirin [Adult Low Dose Aspirin EC] 81 mg PO DAILY 02/19/20 03/02/21 Lisinopril [Prinivil] 10 mg PO QAM 02/19/20 03/02/21 Metoprolol Tartrate [Lopressor] 25 mg PO BID 02/19/20 03/02/21 Simvastatin [Zocor] 40 mg PO HS 02/19/20 03/02/21 Previous Rx's Medication Instructions Recorded Acetaminophen Tab [Tylenol] 1,000 mg PO Q6HR PRN #30 tablet 02/23/20 Ibuprofen [Motrin] 600 mg PO Q8HR PRN #30 tab 02/23/20 HYDROcodone/APAP 5-325MG [[place] 1 tab PO Q6HR PRN #28 tab 03/08/21 5-325] Sennosides-Docusate Sodium 2 each PO HS tab 03/08/21 [Senokot-S] Ketorolac [Toradol] 10 mg PO Q6HR #15 tab 04/01/21 Allergies Allergy/AdvReac Type Severity Reaction Status Date / Time No Known Allergies Allergy Verified 04/01/21 15:15 Review of Systems ROS Statement: Those systems with pertinent positive or pertinent negative responses have been documented in the HPI. ROS Other: All systems not noted in ROS Statement are negative. Past Medical History Past Medical History: Cancer, Hyperlipidemia, Hypertension Additional Past Medical History / Comment(s): SKIN CANCER ON NOSE History of Any Multi-Drug Resistant Organisms: None Reported Past Surgical History: Coronary Bypass/CABG, Hernia Repair, Orthopedic Surgery Additional Past Surgical History / Comment(s): BILAT CATARACTS REMOVED WITH LENS IMPLANTS. RT KNEE AND HAND SX. CANCER REMOVED FROM NOSE. SX FOR UNDESCENDED TESTICLE Past Anesthesia/Blood Transfusion Reactions: No Reported Reaction Past Psychological History: No Psychological Hx Reported Smoking Status: Never smoker Past Alcohol Use History: None Reported Past Drug Use History: None Reported - Past Family History Mother Family Medical History: Cancer General Exam - General Exam Comments Initial Comments: GENERAL: Patient is well-developed and well-nourished. Patient is nontoxic and well- hydrated and is in mild distress. ENT: Neck is soft and supple. No significant lymphadenopathy is noted. Oropharynx is clear. Moist mucous membranes. Neck has full range of motion without eliciting any pain. EYES: The sclera were anicteric and conjunctiva were pink and moist. Extraocular movements were intact and pupils were equal round and reactive to light. Eyelids were unremarkable. PULMONARY: Unlabored respirations. Good breath sounds bilaterally. No audible rales rhonchi or wheezing was noted. CARDIOVASCULAR: There is a regular rate and rhythm without any murmurs gallops or rubs. ABDOMEN: Soft and nontender with normal bowel sounds. SKIN: Skin is clear with no lesions or rashes and otherwise unremarkable. NEUROLOGIC: Patient is alert and oriented x3. Cranial nerves II through XII are grossly intact. Motor and sensory are also intact. Normal speech, volume and content. Symmetrical smile. MUSCULOSKELETAL: Patient has difficulty lifting and abducting the right leg. Patient has some tenderness to the posterior aspect of the right thigh and hamstring area. Patient has no ecchymotic area patient has no bony tenderness. LYMPHATICS: No significant lymphadenopathy is noted PSYCHIATRIC: Normal psychiatric evaluation. Limitations: no limitations Course Vital Signs 04/01/21 15:15 Temperature 98.7 F Pulse Rate 51 L Respiratory 20 Rate Blood Pressure 114/72 O2 Sat by Pulse 99 Oximetry Medical Decision Making - Medical Decision Making ultrasound showed no DVT. Patient is able to and bleed however movement does appear to increase the pain. Patient has no back pain no numbness no focal weakness Patient received Toradol in the emergency department. Disposition Clinical Impression: Hamstring strain Disposition: HOME SELF-CARE Condition: Good Instructions (If sedation given, give patient instructions): Muscle Strain (ED) Prescriptions: Ketorolac [Toradol] 10 mg PO Q6HR #15 tab Is patient prescribed a controlled substance at d/c from ED?: No Referrals: Nonstaff,Physician [Primary Care Provider] - 1-2 days Time of Disposition: 20:08
--- NOTE | 2021-04-01 19:54 | US ---
EXAMINATION TYPE: US venous doppler duplex LE RT DATE OF EXAM: 04/01/2021 7:49 PM COMPARISON: NONE CLINICAL HISTORY: Post surgery, leg pain. right leg pain, hamstring location, no swelling, h/o total left hip in February, no h/o dvt SIDE PERFORMED: Right TECHNIQUE: The lower extremity deep venous system is examined utilizing real time linear array sonog vanna with graded compression, doppler sonography and color-flow sonography. VESSELS IMAGED: Common Femoral Vein Deep Femoral Vein Greater Saphenous Vein * Femoral Vein Popliteal Vein Small Saphenous Vein * Proximal Calf Veins (* superficial vessels) Right Leg: Negative for DVT IMPRESSION: No evidence of deep vein thrombosis in the right leg.
[2021-04-01] MEDS ORDERED: ACET/COD 300 MG/30 MG STARTER PACK 6 TAB BTL PO STA (20:08)
== END 2021-04-01 20:15 | disposition home or self-care (01) ==
LOC: EC 14:36
DX: S76.311A Strain of muscle, fascia and tendon of the posterior muscle group at thigh level, right thigh, initial encounter (principal); I10 Essential (primary) hypertension; E78.5 Hyperlipidemia, unspecified; Z79.82 Long term (current) use of aspirin; Z85.828 Personal history of other malignant neoplasm of skin; Z95.1 Presence of aortocoronary bypass graft; X58.XXXA Exposure to other specified factors, initial encounter
CPT/HCPCS: 99283; 96372; 93971; J1885

== ENCOUNTER → 2022-07-31 | Outpatient (CLI) | payer MEDICARE ==
[2022-07-31 16:13] LABS: INR 0.86 (0.90-1.11); Prothrombin Time 9.8 sec (9.9-11.9)
[2022-07-31 16:48] LABS: Basophils # (A) 0.03 X 10*3/uL (0.00-0.10); Basophils % (A) 0.6 %; Eosinophils % (A) 3.7 %; HCT 46.5 % (39.6-50.0); HGB 15.2 g/dL (13.0-17.0); Immature Grans, Automated 0.4 %; Lymphocytes # (A) 1.37 X 10*3/uL (0.90-5.00); Lymphocytes % (A) 25.1 %; MCH 30.9 pg (27.0-32.0); MCHC 32.7 g/dL (32.0-37.0); MCV 94.5 fL (80.0-97.0); Mean Platelet Volume 9.4 fL (9.5-12.2); Monocytes # (A) 0.62 X 10*3/uL (0.20-1.00); Monocytes % (A) 11.4 %; NRBC Per 100 WBC 0 /100 WBCS (0.0-0.0); Neutrophils # (A) 3.21 X 10*3/uL (1.80-7.70); Neutrophils % (A) 58.8 %; Platelet Count 156 X 10*3/uL (140-440); RBC 4.92 X 10*6/uL (4.40-5.60); WBC 5.45 X 10*3/uL (4.50-10.00)
[2022-07-31 16:53] LABS: African American GFR (CKD) 91.2 (60.0-200.0); Anion Gap 10.9 mmol/L (10.00-18.00); BUN/Creat Ratio 23.18 Ratio (12.00-20.00); Blood Urea Nitrogen 21.6 mg/dL (9.0-27.0); Calcium 9.1 mg/dL (8.7-10.3); Carbon Dioxide 22.4 mmol/L (20.0-27.5); Non-African American GFR(CKD) 78.7 (60.0-200.0); Potassium 4.4 mmol/L (3.5-5.5)
== END | disposition home or self-care (01) ==
LOC: LABPAT 10:27
PROVIDERS: ATTEND Orthopaedic Surgery
DX: Z01.812 Encounter for preprocedural laboratory examination (principal); M16.11 Unilateral primary osteoarthritis, right hip
CPT/HCPCS: 36415; 80048; 85025; 85610; 87070

== ENCOUNTER 2022-08-07 08:09 | Day surgery (SDC) | payer MEDICARE ==
--- NOTE | 2022-08-06 13:39 | HP ---
HISTORY AND PHYSICAL DATE OF SURGERY: 08/07/2022. HISTORY OF PRESENT ILLNESS: Ben Harper is a 77-year-old gentleman seen with symptomatic right hip osteoarthritis failing conservative treatment measures. After we discussed options, he elected to proceed with direct anterior right total hip arthroplasty. Consent regarding the procedure was obtained. Medical clearance was provided by Dr. Chow. PAST MEDICAL HISTORY: Hypertension, hyperlipidemia. PAST SURGICAL HISTORY: Left total hip arthroplasty. Cataract surgery. Coronary artery bypass surgery. DAILY MEDICATIONS: 1. Aspirin. 2. Lisinopril. 3. Metoprolol. 4. Simvastatin. 5. Meloxicam. ALLERGIES: None. SOCIAL HISTORY: Denies tobacco use. PHYSICAL EVALUATION OF THE RIGHT HIP: He has diffuse tenderness about the hip girdle. Limited range of motion of it with severe pain. Impingement sign is positive. Straight-leg raise negative. His distal neurovascular exam is intact. RADIOGRAPHS: Radiographs of the right hip reveal severe osteoarthritic changes. IMPRESSION: 1. Right hip osteoarthritis. 2. Hypertension. 3. Hyperlipidemia. PLAN: Direct anterior right total hip arthroplasty. MMODL / IJN: [id number] /
[~2022-08-07 08:09] MED LIST changes: +DEXAMETHASONE SOD PHOSPHATE 4 MG/ML 1 ML VIAL IV ONE; +HYDROmorphone 0.5 MG/0.5 ML SYRINGE IVP PRN; +MIDAZOLAM 2 MG/2 ML VIAL IV PRN; +ONDANSETRON 4 MG/2 ML VIAL IVP ONE; -ROPIVACAINE/EPI/CLONIDINE/KET 50 ML SYRINGE MISCELLANE PRN; -TRANEXAMIC ACID 1,000 MG in SODIUM CHLORIDE 0.9% 100 ML IVPB PRN; +TRANEXAMIC ACID IN NACL,ISO-OS 1,000 MG in SALINE 1 100ML.BAG IVPB PRN
[2022-08-07] MEDS: LACTATED RINGERS 1,000 ML IV SCH ×2 (08:30→17:14)
[2022-08-07] MEDS ORDERED: fentaNYL (PF) 50 MCG/ML 2 ML AMP IVP ONE (09:23)
[2022-08-07] MEDS ORDERED: MIDAZOLAM 2 MG/2 ML VIAL IVP ONE (09:23)
--- NOTE | 2022-08-07 09:41 | P.ANPRN ---
Procedure Note - Anesthesia - Nerve Block Performed Right Yusef Single Time Out Performed: Yes (09) Date of Procedure: 08/07/22 Procedure Start Time: Procedure Stop Time: Location of Patient: PreOp Indication: Acute Post-Operative Pain, Requested by Surgeon Specifically requested for management of pain by DrRajinder: Denzel Villasenor Sedation Type: Sedate with meaningful contact maintained Preparation: Sterile Prep Position: Supine Catheter: None Needle Types: [place] Needle Gauge: 21 Ultrasound used to visualize needle placement: Yes Ultrasound used to observe medication spread: Yes Injectate: 0.5% Ropivacaine (see comment for volume) (30cc) Blood Aspirated: No Pain Paresthesia on Injection Noted: No Resistance on Injection: Normal Image Stored and Saved: Yes Events: Uneventful and Well Tolerated
[2022-08-07] MEDS ORDERED: PROPOFOL 10 MG/ML 20 ML VIAL IV ONE (10:06)
[2022-08-07] MEDS ORDERED: ePHEDrine 50 MG/ML 1 ML VIAL ONE (10:06)
[2022-08-07] MEDS ORDERED: PHENYLEPHRINE-0.9% NACL SYG 1,000 MCG/10 ML SYRINGE ONE (10:06)
[2022-08-07] MEDS ORDERED: MIDAZOLAM 2 MG/2 ML VIAL ONE (10:06)
[2022-08-07] MEDS ORDERED: fentaNYL (PF) 50 MCG/ML 2 ML AMP ONE (10:06)
[2022-08-07] MEDS ORDERED: ROPIVACAINE 5 MG/ML 30 ML VIAL ONE (10:06)
[2022-08-07] MEDS ORDERED: LACTATED RINGERS 1,000 ML IV ONE (11:09)
[2022-08-07] MEDS ORDERED: HYDROmorphone 0.5 MG/0.5 ML SYRINGE IVP PRN ×3 (11:42)
[2022-08-07] MEDS ORDERED: ONDANSETRON 4 MG/2 ML VIAL IVP PRN (11:42)
[2022-08-07] MEDS ORDERED: NALOXONE 0.4 MG/ML 1 ML VIAL IV PRN (11:42)
[2022-08-07] MEDS ORDERED: HYDROcodone/APAP 5-325MG 1 EACH TAB PO PRN (11:42)
--- NOTE | 2022-08-07 11:42 | P.OP ---
Date of Procedure: 08/07/22 Preoperative Diagnosis: Right hip osteoarthritis Postoperative Diagnosis: Right hip osteoarthritis Procedure(s) Performed: Direct anterior right total hip arthroplasty Implants: 1. Depuy Corail KA size 8 standard collared press-fit femoral stem 2. Depuy pinnacle 64 mm press-fit acetabular shell 3. Depuy pinnacle +4 neutral polyethylene acetabular liner 36 mm ID 64 mm OD 4. Biolox delta ceramic femoral head +5 36 mm Anesthesia: regional (erector spinae block), spinal Surgeon: Denzel Villasenor [employer] Supervisor #1: Sujit Christianson Estimated Blood Loss (ml): 55 Pathology: other (Femoral head) Condition: stable Disposition: PACU Indications for Procedure: 77-year-old patient seen with symptomatic right hip osteoarthritis. After treatment options were discussed, he elected to proceed with direct anterior right total hip arthroplasty Operative Findings: See description of procedure Description of Procedure: The patient was taken to the operative suite. Patient underwent a spinal anesthetic by the department of anesthesia. Patient was then transferred to the [place] table. Patient was given preoperative IV antibiotics and TXA. Both lower extremities were placed in standard leg spars. The hip was then prepped and draped in the normal sterile orthopedic fashion. A standard anterior incision was made beginning 3 cm lateral and 1 cm distal to the ASIS extending 10 cm. Dissection was then carried down through the subcutaneous soft tissues down to the fascia overlying the tensor fascia dc. An incision was now made through the fascia. Careful dissection was taken down exposing the tensor fascia dc muscle. A Cobra retractor was now placed along the medial femoral neck and a second one along the lateral femoral neck. The venous circumflex vessels were now identified, cauterized and clipped. We identified the anterior hip capsule. An incision was made through the hip capsule along the lateral border. I performed a partial anterior capsulectomy. Retractors were now placed around the femoral neck itself. A femoral neck cut was now made with a sagittal saw. It was completed with an osteotome at the lateral neck area. The femoral head was now removed without difficulty. The extremity was now rotated to 60 of external rotation. It was locked in position. Residual labrum was now debrided out. Serial reaming was performed of the acetabulum while Jamie PLEITEZ assisted holding an anterior retractor for exposure. Once we reached the appropriate size and a trial was position and fit nicely. The appropriate size was now chosen opened and made available. It was introduced into the acetabulum without difficulty. The C-arm/fluoroscopy was now brought into the operative field. We made sure we had a true AP pelvic view. We now under direct C- arm/fluoroscopy introduced into the acetabular component with appropriate version and inclination. I held the cup in appropriate position well Jamie PLEITEZ used a mallet to seat the acetabular component. I noted the component now to be well seated and stable. Acetabular cup introduce her was removed. The C-arm was pulled back. An appropriate liner was introduced and clicked into position. It was felt to be stable. At this point retractors were removed. The extremity was now placed into 120 external rotation with no traction. The leg was now dropped to the ground and adducted. Appropriate retractors were now positioned along the proximal femur. We also placed our femoral look into position. Additional capsular releasing was performed to gain access to the proximal femur. We now used a box osteotome. A canal finder was now utilized. Serial broaching was now performed with the assistance of Jamie PLEITEZ tapping the broaches down with a mallet while held the broach in appropriate rotation and position. This was done until we reached the appropriate size with good overall rotational stability. Appropriate calcar planing was performed. A trial head/neck was placed into position. The hip was now reduced. The C- arm/fluoroscopy was brought back into the operative field. I obtained an AP pelvis was demonstrated adequate leg length alignment. The trial components appeared adequately sized and position. The C-arm/fluoroscopy was pulled back. Retractors were repositioned and the hip was dislocated. The leg was again taken down to the ground and adducted. Appropriate retractors were repositioned as well as the femoral hook. All trial components were removed. The femoral implant was opened along with the femoral head. The femoral implant was introduced on the appropriate handle into our pre-broached area. I held the component position well Jamie PLEITEZ used a mallet to seat the femoral component. The femoral component was now noted to be well seated and stable.. The femoral head was introduced with good positioning and fixation noted. Retractors were now removed. The hip was now reduced. There appeared be good positioning of the hip confirmed on intraoperative fluoroscopy. Spot films were obtained to document this. A second gram of TXA was given. Bipolar cautery had been utilized intermittently through the procedure for hemostasis. The wound was irrigated copiously with pulse lavage mechanical irrigation. The fascia was repaired with Vicryl suture. The subcutaneous soft tissues were repaired in layers with Vicryl suture. The skin was approximated with pernio/Dermabond. Sterile dressings were applied. Patient was then awakened, transferred to a bed and taken to recovery in stable condition. Jamie PLEITEZ assisted with the complex procedure.
--- NOTE | 2022-08-07 11:54 | XR ---
Intraoperative/procedural fluoroscopic services were provided for right total hip arthroplasty. Hardw are appears intact with appropriate alignment. Total fluoroscopy time is 17 seconds with a total of 4 submitted images to PACS. Total body DAP 1.5128 Gycm2. Please see the operative note for further det ails.
[2022-08-07] MEDS: HYDROcodone/APAP 7.5-325MG 1 EACH TAB PO PRN ×2 (16:23→21:57)
[2022-08-07] MEDS ORDERED: ATORVASTATIN 20 MG TAB PO SCH (21:00)
[2022-08-07] MEDS ORDERED: SENNOSIDES-DOCUSATE SODIUM 1 EACH TAB PO SCH (21:00)
[2022-08-08] MEDS: LACTATED RINGERS 1,000 ML IV SCH ×3 (00:22→08:55)
[2022-08-08 06:48] LABS: Basophils % (A) 0 %; Eosinophils % (A) 0 %; HCT 39.6 % (39.0-53.0); HGB 13.4 gm/dL (13.0-17.5); Lymphocytes # (A) 1.1 k/uL (1.0-4.8); Lymphocytes % (A) 17 %; MCH 31.6 pg (25.0-35.0); MCHC 33.9 g/dL (31.0-37.0); MCV 93.1 fL (80.0-100.0); Mean Platelet Volume 7.5; Monocytes # (A) 0.6 k/uL (0-1.0); Monocytes % (A) 9 %; Neutrophils # (A) 4.7 k/uL (1.3-7.7); Neutrophils % (A) 72 %; Platelet Count 131 k/uL (150-450); RBC 4.25 m/uL (4.30-5.90); WBC 6.5 k/uL (3.8-10.6)
[2022-08-08 07:45] VITALS: RESP 18; TEMP 98.7
[2022-08-08] MEDS: HYDROcodone/APAP 7.5-325MG 1 EACH TAB PO PRN (08:13)
[2022-08-08] MEDS ORDERED: FAMOTIDINE 20 MG TAB PO SCH (09:00)
[2022-08-08] MEDS ORDERED: ASPIRIN 81 MG PO SCH (09:00)
[2022-08-08] MEDS ORDERED: lisinopriL 10 MG TAB PO SCH (09:00)
[2022-08-08] MEDS ORDERED: ENOXAPARIN 40 MG/0.4 ML SYRINGE SQ SCH (09:00)
[2022-08-08] MEDS ORDERED: METOPROLOL TARTRATE 25 MG TAB PO SCH (09:30)
[2022-08-08 10:17] VITALS: BP 134/70; PULSE 63
--- NOTE | 2022-08-08 11:04 | P.DS ---
Providers Date of admission: 08/07/2022 Expected date of discharge: 08/08/22 Attending physician: Denzel Villasenor Consults: 08/07/22 11:42 Consult Physician Routine Consulting Provider: Yu Peraza Consult Reason/Comments: Medical management Do you want consulting provider notified?: Yes Primary care physician: Bob Cuevas MD Hospital Course: Date of admission: 08/07/2022 Date of discharge: 08/08/2022 Admission diagnosis: Right hip osteoarthritis Discharge diagnosis: same Attending physician: Dr. Villasenor Surgical procedures: Right total hip arthroplasty Brief history: Patient is a 77-year-old male with a history of progressive primary right hip osteoarthritis. At this point patient has failed conservative treatment measures and has opted to proceed with a elective right total hip arthroplasty. Hospital course: Details of patient's surgery can be found in operative report. Patient tolerated the procedure well and was subsequently transported to orthopedic floor. Patient's orthopeidc and medical care was provided daily. Patient had daily laboratory tests performed for evaluation of overall blood counts. Patient had daily physical therapy to include strengthening range of motion as well as education with walker ambulation. Patient was treated with Lovenox for their postoperative DVT prophylaxis during their inpatient stay. Patient was noted to have a relatively uneventful postoperative course. Patient reported satisfactory pain control with oral pain medications by postoperative day 1. Patient showed satisfactory progress with physical therapy. Patient moved steadily through the program and had no difficulty meeting the goals by postoperative day 1. Given patient's otherwise satisfactory course and having met physical therapy goals, plan is to discharge patient home with health services on postoperative day 1. Discharge condition/disposition: Patient will be discharged home with health services in stable condition. Discharge medications: Instructions are given on resumption of patient's normal daily medications per primary care recommendation, in addition patient will be prescribed [place] 7.5 mg/325 mg; senna; aspirin at home 81 mg twice daily 30 days. Discharge instructions: 1. Wound care and infection precautions, keep incision dry and covered while showering, no lotions, creams, moisturizers. No soaking, tubs, pools, hottubs. Do not scrub over the incision. 2. Weight-bear as tolerated with walker / cane until follow-up. 3. Ice and elevate when necessary. Do not exceed 20 minutes per hour with ice pack. 4. Utilize compression sleeve until seen at first follow up appointment. 5. Visiting nursing care. 6. Home physical therapy including home CPM. 7. Pain meds and anticoagulants per prescription. 8. Pain medication has potential to cause constipation. Increase oral fluid and fiber intake. Contact primary care provider if you have not had a bowel movement within 48 hours after discharge 9. No anti-inflammatory medication until discussed at first post operative visit, this including Motrin, Aleve, Mobic, Diclofenac 10. Follow up in office at 2 weeks postop with Jamie Christianson PA-C / Jossue Pro PA-C 11. Follow up with your primary care doctor 7-10 days after discharge. 12. Contact [facility] with any questions, . Assessment: Right hip osteoarthritis Procedures: Right total hip arthroplasty Patient Condition at Discharge: Good Plan - Discharge Summary Discharge Rx Participant: Yes New Discharge Prescriptions: New HYDROcodone/APAP 7.5-325MG [[place] 7.5] 1 each PO Q6HR PRN #28 tab PRN Reason: Pain Sennosides/Docusate Sodium [Senna Plus 8.6-50 mg Softgel] 1 each PO DAILY #20 cap No Action Simvastatin [Zocor] 40 mg PO HS Metoprolol Tartrate [Lopressor] 25 mg PO BID lisinopriL [Prinivil] 10 mg PO QAM Aspirin [Adult Low Dose Aspirin EC] 81 mg PO DAILY Acetaminophen Tab [Tylenol] 1,000 mg PO Q6HR PRN PRN Reason: Pain Discharge Medication List Aspirin [Adult Low Dose Aspirin EC] 81 mg PO DAILY 02/19/20 [History] Metoprolol Tartrate [Lopressor] 25 mg PO BID 02/19/20 [History] Simvastatin [Zocor] 40 mg PO HS 02/19/20 [History] lisinopriL [Prinivil] 10 mg PO QAM 02/19/20 [History] Acetaminophen Tab [Tylenol] 1,000 mg PO Q6HR PRN 08/01/22 [History] HYDROcodone/APAP 7.5-325MG [[place] 7.5] 1 each PO Q6HR PRN #28 tab 08/08/22 [Rx] Sennosides/Docusate Sodium [Senna Plus 8.6-50 mg Softgel] 1 each PO DAILY #20 cap 08/08/22 [Rx] Follow up Appointment(s)/Referral(s): Sujit Christianson PAC [PHYSICIAN CORE PASTER] - 2 Weeks Patient Instructions/Handouts: Anterior Hip Replacement (DC) Activity/Diet/Wound Care/Special Instructions: Orthopedic Discharge Instructions: 1. Wound care and infection precautions, keep incision dry and covered while showering, no lotions, creams, moisturizers. No soaking, pools, hot tubs. Do not scrub over incision. 2. Weight-bear as tolerated with walker / cane until follow-up. 3. Ice and elevate when necessary. Do not exceed 20 minutes per hour with ice pack. 4. Utilize compression sleeve until seen at first follow up appointment. 5. Pain meds and anticoagulants per prescription. 6. Pain medication has potential to cause constipation. Increase oral fluid and fiber intake. Contact primary care provider if you have not had a bowel movement within 48 hours after discharge. 7. No anti-inflammatory medication until discussed at first post operative visit, this including Motrin, Aleve, Mobic, Diclofenac. 8. Follow up in office at 2 weeks postop with Jamie Christianson PA-C / Jossue Pro PA-C 9. Follow up with your primary care doctor 7-10 days after discharge. 10. Contact [facility] with any questions, . Keep incision clean, dry, intact. While showering, cover silver foam dressing with Saran wrap. Silver foam dressing may be removed in 7 days, 08/14/2022. May shower over incision once silver dressing is removed. Discharge Disposition: HOME WITH HOME HEALTH SERVICES
--- NOTE | 2022-08-08 11:13 | P.PN ---
Subjective Progress Note Date: 08/08/22 Principal diagnosis: Right hip osteoarthritis Patient was seen at bedside this morning sitting up in chair. Patient says he did work with physical therapy earlier this morning and was able walk up and down stairs. Patient says he is looking forward to going home later today. Shiv nena says he does need a walker for home. Patient says he has urinated since surgery yesterday. Patient says he has not had bowel movement since surgery. Patient denies chest pain, fever, shortness of breath, nausea, lying, change in vision, loss of bowel/bladder control. Objective - Vital Signs Vital signs: Vital Signs Temp 98.7 F 08/08/22 07:05 Pulse 63 08/08/22 10:17 Resp 18 08/08/22 08:00 BP 134/70 08/08/22 10:17 Pulse Ox 100 08/08/22 10:17 FiO2 Intake & Output 08/07/22 08/08/22 08/08/22 18:59 06:59 18:59 Intake Total 1600 Output Total 55 Balance 1545 Weight 104.9 kg Intake: IV 1600 Output: Estimated Blood Loss 55 Other: Voiding Method Toilet Toilet # Voids 1 1 # Bowel Movements 1 - Exam Right hip: Incision is clean, dry, and intact. The silver foam dressing is in good co ndition. There is minimal soft tissue swelling and ecchymosis surrounding the medial and lateral aspects of the incision. Calf is soft, no tenderness with palpation. Plantar flexion, dorsiflexion, EHL, FHL are intact. Sensory exam to light touch throughout the extremity is intact, dorsal pedis pulses 2+. - Labs CBC & Chem 7: 08/08/22 05:32 Labs: Abnormal Lab Results - Last 24 Hours (Table) 08/08/22 Range/Units 05:32 RBC 4.25 L (4.30-5.90) m/uL Plt Count 131 L (150-450) k/uL Assessment and Plan Assessment: 1. Right hip osteoarthritis - Postop day #1 status post right total hip arthroplasty Plan: 1. Right hip osteoarthritis - right total hip arthroplasty performed yesterday, 08/07/2022. Patient stable at bedside this morning. Prescription for walker signed. Plan for discharge home today with health services. 2. Appreciate medical management 3. Pain management - [place] 4. DVT prophylaxis - Lovenox in hospital. Patient does have aspirin at home. 5. GI prophylaxis - senna 6. PT/OT - weightbearing as tolerated with walker 7. Encourage incentive spirometer use 8. Discharge planning - discharge home today with health services Time with Patient: Less than 30
--- NOTE | 2022-08-08 15:16 | P.CONS ---
History of Present Illness - Reason for Consult Consult date: 08/08/22 Medical management right total hip arthroplasty - History of Present Illness This is a 77-year-old male who was admitted under orthopedic services status post right total hip arthroplasty postop day #1. Patient reports he follows with Dr. Bob Mendoza in the outpatient setting with a past medical history of hypertension, hyperlipidemia, osteoarthritis, skin cancer on the nose. Patient denies any illicit drug use and was never a smoker and did go to presurgical clearance at PCPs office along with cardiology. Patient reports to doing relatively well today and was able to work with physical therapy and is working on being discharged today. Review Of Systems: Constitutional: No fever, no chills, no night sweats. No weight change. No weakness, fatigue or lethargy. No daytime sleepiness. EENT: No headache. No blurred vision or double vision, no loss of vision. No loss of Hearing, no ringing in the ears, no dizziness. No nasal drainage or congestion. No epistaxis. No sore throat. Lungs: No shortness of breath, cough, no sputum production. No wheezing. Cardiovascular: No chest pain, no lower extremity edema. No palpitations. No paroxysmal nocturnal dyspnea. No orthopnea. No lightheadedness or dizziness. No syncopal episodes. Abdominal: No abdominal pain. No nausea, vomiting. No diarrhea. No constipation. No bloody or tarry stools.. No loss of appetite. Genitourinary: No dysuria, increased frequency, urgency. No urinary retention. Musculoskeletal: No myalgias. No muscle weakness, no gait dysfunction, no frequent falls. No back pain. No neck pain. Reports some mild left hip pain Integumentary: No wounds, no lesions. No rash or pruritus. No unusual bruising. No change in hair or nails. Neurologic: No aphasia. No facial droop. No change in mentation. No head injury. No headache. No paralysis. No paresthesia. Psychiatric: No depression. No anxiety. No mood swings. Endocrine: No abnormal blood sugars. No weight change. No excessive sweating or thirst. No cold intolerance. PHYSICAL EXAMINATION: GENERAL: The patient is alert and oriented x4, Well developed, well nourished. HEENT: Pupils are round and equally reacting to light. EOMI. no scleral icterus. No conjunctival pallor. Normocephalic, atraumatic. No pharyngeal erythema. No thyromegaly. CARDIOVASCULAR: S1 and S2 muffled PULMONARY: diminished breath sounds bilaterally with no wheezing or rhonchi noted. ABDOMEN: soft. Nontender on exam. obese. non-distended, normoactive bowel sounds. No palpable organomegaly. MUSCULOSKELETAL: No joint swelling or deformity. EXTREMITIES: No cyanosis, clubbing, or pedal edema. Left surgical hip is dry and intact with no surrounding redness or inflammation noted NEUROLOGICAL: Gross neurological examination did not reveal any focal deficits. Diffuse weakness SKIN: No rashes. Assessment: Status post right total hip arthroplasty History of hypertension Hyperlipidemia History of osteoarthritis GI prophylaxis DVT prophylaxis Full code Plan: Recommend to continue with current medications and management per orthopedic services. Patient is status post right total hip arthroplasty postop day 1. Patient is doing relatively well and reports pain is controlled. Patient reports to passing gas and is voiding with no difficulties. Patient reports he did go to a adoption services manager along with his primary care provider for presurgical clearance and has been following with orthopedics outpatient. Patient reports he is going to stay with his daughter for a couple of days and then home. Patient with incentive spirometer at the bedside encouraged to continue using at least 10 times every hour while awake and bringing it home with him and anibali ng. Patient's blood pressure medications were held and recommend resume and instructed the patient to monitor blood pressures and if low keep a diary and follow-up with primary care provider. Home medications have been reviewed and resumed as appropriate. Patient is medically stable for discharge today. currently for this consultation and we will continue to follow during hospitalization. The impression and plan of care has been dictated by Lidya Mcfarland, nurse practitioner as directed. Dr. Angelika MD I have performed a history and examination and MDM of this patient, discussed the same with the dictator, and agree with the dictator's assessment and plan as written ,documented as a scribe. Based on total visit time, I have performed more than 50% of the visit. Any additional findings or plans will be noted. Past Medical History Past Medical History: Cancer, Hyperlipidemia, Hypertension, Osteoarthritis (OA) Additional Past Medical History / Comment(s): SKIN CANCER ON NOSE, rt hip pain. History of Any Multi-Drug Resistant Organisms: None Reported Past Surgical History: Coronary Bypass/CABG, Hernia Repair, Orthopedic Surgery Additional Past Surgical History / Comment(s): BILAT CATARACTS REMOVED WITH LENS IMPLANTS. RT KNEE AND HAND SX. CANCER REMOVED FROM NOSE. SX FOR UNDESCENDED. rt hernia repair, cyst in back removed. Past Anesthesia/Blood Transfusion Reactions: No Reported Reaction Smoking Status: Never smoker - Past Family History Mother Family Medical History: Cancer Additional Family Medical History / Comment(s): bone, Medications and Allergies Home Medications Medication Instructions Recorded Confirmed Type Aspirin [Adult Low Dose Aspirin EC] 81 mg PO DAILY 02/19/20 08/07/22 History Metoprolol Tartrate [Lopressor] 25 mg PO BID 02/19/20 08/07/22 History Simvastatin [Zocor] 40 mg PO HS 02/19/20 08/07/22 History lisinopriL [Prinivil] 10 mg PO QAM 02/19/20 08/07/22 History Acetaminophen Tab [Tylenol] 1,000 mg PO Q6HR PRN 08/01/22 08/07/22 History HYDROcodone/APAP 7.5-325MG [[place] 1 each PO Q6HR PRN #28 tab 08/08/22 Rx 7.5] Sennosides/Docusate Sodium [Senna 1 each PO DAILY #20 cap 08/08/22 Rx Plus 8.6-50 mg Softgel] Allergies Allergy/AdvReac Type Severity Reaction Status Date / Time No Known Allergies Allergy Verified 08/07/22 08:53 Physical Exam Vitals: Vital Signs Temp Pulse Pulse Resp BP Pulse Ox 08/08/22 09:05 109 H 08/08/22 08:00 109 H 18 08/08/22 07:05 98.7 F 109 H 18 163/88 98 08/08/22 02:00 99.2 F 72 16 104/61 98 08/07/22 20:00 98.2 F 102 H 17 134/74 98 08/07/22 13:57 65 17 115/74 97 08/07/22 12:45 69 16 105/65 97 08/07/22 12:30 65 16 106/66 100 08/07/22 12:10 96.9 F L 61 16 93/56 96 08/07/22 09:38 60 15 123/76 97 08/07/22 09:33 68 15 137/77 97 08/07/22 09:28 62 15 131/75 97 Intake and Output 08/07/22 08/08/22 08/08/22 22:59 06:59 14:59 Other: Voiding Method Toilet Toilet # Voids 1 1 # Bowel Movements 1 Results CBC & Chem 7: 08/08/22 05:32 Labs: Abnormal Lab Results - Last 24 Hours (Table) 08/08/22 Range/Units 05:32 RBC 4.25 L (4.30-5.90) m/uL Plt Count 131 L (150-450) k/uL
== END 2022-08-08 12:06 | disposition home health service (06) ==
LOC: OR 08:09 → 4SSUR 12:05 → OR 08-08 12:06
PROVIDERS: ATTEND Orthopaedic Surgery
DX: M16.11 Unilateral primary osteoarthritis, right hip (principal); G89.18 Other acute postprocedural pain; I10 Essential (primary) hypertension; E78.5 Hyperlipidemia, unspecified; Z95.1 Presence of aortocoronary bypass graft; Z98.890 Other specified postprocedural states; Z98.41 Cataract extraction status, right eye; Z98.42 Cataract extraction status, left eye; Z79.899 Other long term (current) drug therapy; Z79.82 Long term (current) use of aspirin; Z85.828 Personal history of other malignant neoplasm of skin; Z80.8 Family history of malignant neoplasm of other organs or systems
CPT/HCPCS: 97161; 64447; 76942; 86900; 86901; 85025; 86850; 88300; 73501; 27130; C1776; J2250; J1100; J0690 ×2; J2405; J1650; J3010

== ENCOUNTER → 2023-09-07 | Outpatient (CLI) | payer MEDICARE ==
[2023-09-07 15:29] LABS: Potassium 4.6 mmol/L (3.5-5.5)
== END | disposition home or self-care (01) ==
LOC: LABPAT 11:06
PROVIDERS: ATTEND Orthopaedic Surgery
DX: Z01.812 Encounter for preprocedural laboratory examination (principal); M23.92 Unspecified internal derangement of left knee
CPT/HCPCS: 36415; 80051; 85025

== ENCOUNTER → 2023-09-10 | Outpatient (CLI) | payer MEDICARE ==
[2023-09-10 16:05] LABS: Basophils # (A) 0.03 X 10*3/uL (0.00-0.10); Basophils % (A) 0.4 %; Eosinophils # (A) 0.09 X 10*3/uL (0.04-0.35); Eosinophils % (A) 1.2 %; HCT 44.1 % (39.6-50.0); HGB 14.6 g/dL (13.0-17.0); Lymphocytes # (A) 1.19 X 10*3/uL (0.90-5.00); Lymphocytes % (A) 15.9 %; MCH 30.5 pg (27.0-32.0); MCHC 33.1 g/dL (32.0-37.0); MCV 92.1 FL (80.0-97.0); Mean Platelet Volume 9.7 FL (9.5-12.2); Monocytes # (A) 0.77 X 10*3/uL (0.20-1.00); Monocytes % (A) 10.3 %; NRBC Per 100 WBC 0 X 10*3/uL (0.00-0.01); Neutrophils # (A) 5.37 X 10*3/uL (1.80-7.70); Neutrophils % (A) 71.8 %; Platelet Count 168 X 10*3/uL (140-440); RBC 4.79 X 10*6/uL (4.40-5.60); RDW 13.2 % (11.5-14.5); WBC 7.48 X 10*3/uL (4.50-10.00)
== END | disposition home or self-care (01) ==
LOC: LABPAT 11:50
PROVIDERS: ATTEND Orthopaedic Surgery
DX: Z01.812 Encounter for preprocedural laboratory examination (principal); M23.92 Unspecified internal derangement of left knee
CPT/HCPCS: 85025

== ENCOUNTER 2023-10-04 08:57 | Day surgery (SDC) | payer MEDICARE ==
[2023-10-02 14:37] VITALS: BMI 28.2
--- NOTE | 2023-10-03 21:16 | HP ---
HISTORY AND PHYSICAL DATE OF SCHEDULED SURGERY: 10/04/2023. HISTORY OF PRESENT ILLNESS: eBn Harper is a 78-year-old gentleman seen with progressive left knee pain. We discussed options. He elected to proceed with left knee arthroscopy. Consent regarding procedure was obtained. Cardiac clearance was provided. PAST MEDICAL HISTORY: Hyperlipidemia, hypertension, cardiovascular disease. SURGICAL HISTORY: Cataract surgery, herniorrhaphy, coronary artery bypass surgery, right index finger surgery. DAILY MEDICATIONS: 1. Aspirin. 2. Lisinopril. 3. Metoprolol. 4. Simvastatin. 5. Meloxicam. ALLERGIES: None. SOCIAL HISTORY: He denies tobacco use. PHYSICAL EVALUATION OF THE LEFT KNEE: His range of motion is 0 to 120 degrees. He has a mild effusion. He is tender along the medial and lateral joint lines. Positive medial Maritza's. Positive lateral Maritza's. Ligaments stable. Hip rotation without pain. Distal neurovascular exam intact. IMAGING STUDIES: Left knee radiographs revealed moderate patellofemoral compartment osteoarthritis. MRI left knee revealed medial and lateral meniscal tears, osteoarthritis, Stover cyst, loose body. IMPRESSION: 1. Internal derangement of left knee with medial and lateral meniscal tears. 2. Left knee loose body. 3. Left knee patellofemoral osteoarthritis. 4. Hypertension. 5. Hyperlipidemia. PLAN: Arthroscopy left knee with partial medial/lateral meniscectomy, removal of loose body and debridement. MMCYNTHIAL / ADELAN: [id number] /
[~2023-10-04 08:57] MED LIST changes: -ACETAMINOPHEN TAB 500 MG TAB PO PRN; -DEXAMETHASONE SOD PHOSPHATE 4 MG/ML 1 ML VIAL IV ONE; -MELOXICAM 7.5 MG TAB PO PRN; -MIDAZOLAM 2 MG/2 ML VIAL IV PRN; -ONDANSETRON 4 MG/2 ML VIAL IVP ONE; -TRANEXAMIC ACID IN NACL,ISO-OS 1,000 MG in SALINE 1 100ML.BAG IVPB PRN
[2023-10-04] MEDS: LIDOCAINE 1% (10MG/ML) FOR IV START INTRADERMA STA (09:51)
[2023-10-04] MEDS: IV FLUID CONTINUATION 1,000 ML IV ONE (09:52)
[2023-10-04] MEDS: LACTATED RINGERS 1,000 ML IV SCH (09:52)
[2023-10-04] MEDS: DEXAMETHASONE SOD PHOSPHATE 4 MG/ML 1 ML VIAL IVP STA (09:52)
[2023-10-04] MEDS: ONDANSETRON 4 MG/2 ML VIAL IVP STA (09:54)
[2023-10-04] MEDS ORDERED: KETOROLAC 15 MG/ML 1 ML VIAL ONE (10:05)
[2023-10-04] MEDS ORDERED: LIDOCAINE 1% INJ 10MG/ML (20 ML MDV) ONE (10:05)
[2023-10-04] MEDS ORDERED: PROPOFOL 10 MG/ML 20 ML VIAL IV ONE (10:05)
[2023-10-04] MEDS ORDERED: fentaNYL (PF) 50 MCG/ML 2 ML AMP ONE (10:05)
[2023-10-04] MEDS: BUPIVACAINE (PF) 0.25% 30 ML VIAL MISCELLANE ONE ×2 (10:24→10:35)
[2023-10-04 10:51] VITALS: TEMP 98.1
--- NOTE | 2023-10-04 10:53 | P.OP ---
Date of Procedure: 10/04/23 Preoperative Diagnosis: Internal derangement left knee Postoperative Diagnosis: 1. Tear medial and lateral meniscus left knee 2. Grade IV chondromalacia medial femoral condyle left knee 3. Reactive synovitis medial, lateral and suprapatellar compartments left knee Procedure(s) Performed: 1. Arthroscopic partial medial and lateral meniscectomy left knee 2. Arthroscopic microfracture medial femoral condyle left knee 3. Arthroscopic partial synovectomy medial, lateral and suprapatellar compartments left knee Anesthesia: TAISHAA, local Surgeon: Denzel Villasenor Estimated Blood Loss (ml): 6 Pathology: none sent Condition: stable Disposition: PACU Indications for Procedure: 78-year-old patient seen with progressive left knee pain. After having treatment options discussed, he elected to proceed with arthroscopy. Operative Findings: See description of procedure Description of Procedure: Patient was taken to the operative suite. Patient underwent a general anesthetic by the department of anesthesia. Patient was given preoperative antibiotics. The left lower extremity was placed in a well-padded arthroscopic leg espinoza. The left leg was prepped and draped in the normal sterile orthopedic fashion. A lateral parapatellar and suprapatellar incision was made. Trochars were inserted. Arthroscopy was initiated. Suprapatellar pouch revealed diffuse thick reactive synovitis. The patellofemoral joint appeared to articulate congruently. There was grade III chondromalacia of the patellofemoral joint without any significant tearing. The scope was guided into the medial gutter. No loose bodies or plica were identified. the scope was then guided into the medial compartment. A medial parapatellar incision was made. Trocar inserted followed by probe. There was a radial tear involving the posterior of the medial meniscus. There was a grade III/IV chondromalacia changes on the medial femoral condyle with some osteochondral flap tears present. There was thick reactive synovitis anteriorly. I performed a partial medial meniscectomy getting down to stable meniscal tissue. I performed a chondroplasty of the medial femoral condyle getting down to stable osteochondral tissue. I performed a partial synovectomy decompressing the thick reactive synovitis anteriorly. I did note an area of grade IV chondromalacia along the medial femoral condyle measuring just under centimeter with exposed bone. I introduced a microfracture awl and I performed a microfracture to that area of exposed bone penetrating the bone with resultant bleeding at the microfracture site. The residual meniscus was stable. The residual osteochondral surface was stable. There was good decompression of the synovitis. Scope and probe were then guided into the intercondylar notch. Cruciates were identified, probed and found to be stable. The scope and probe were then guided into lateral compartment. There was a radial tear mid body lateral meniscus. There were grade I chondromalacia changes lateral compartment without tears. There was some thick reactive synovitis anteriorly. I performed a partial lateral meniscectomy getting down to stable meniscal tissue. I performed a partial synovectomy decompressing the reactive synovitis. The residual meniscus was probed and was found to be stable. There was good decompression of the synovitis. The scope was in guided back into the suprapatellar compartment. I introduced a motorized shaver into the suprapatellar compartment. I performed a partial synovectomy. The shaver was removed. There was good decompression of the synovitis. I took 1 more look around the entire knee, no residual debris. Instruments were now removed from the joint. The joint was infiltrated with .25% Marcaine. Steri-Strips were applied to the portal sites. Sterile dressing s were applied. The patient was placed into a NOE hose. No tourniquet was utilized. The patient was awakened, transferred to a bed and taken to recovery stable satisfactory condition.
[2023-10-04 11:25] VITALS: RESP 18
[2023-10-04 11:42] VITALS: BP 145/68; PULSE 57
== END 2023-10-04 12:04 | disposition home or self-care (01) ==
LOC: OR 08:57
PROVIDERS: ATTEND Orthopaedic Surgery
DX: M23.222 Derangement of posterior horn of medial meniscus due to old tear or injury, left knee (principal); M23.262 Derangement of other lateral meniscus due to old tear or injury, left knee; M22.42 Chondromalacia patellae, left knee; M65.862 Other synovitis and tenosynovitis, left lower leg; I10 Essential (primary) hypertension; E78.49 Other hyperlipidemia; I25.10 Atherosclerotic heart disease of native coronary artery without angina pectoris; Z95.1 Presence of aortocoronary bypass graft; Z79.82 Long term (current) use of aspirin; Z79.899 Other long term (current) drug therapy
CPT/HCPCS: 29880; 29879; 29876; J1100; J0690; J2405; J2001; J3010; J1885; J2704; J0665